=== PATIENT | male | born 1935 | race Caucasian/White ===

== ENCOUNTER 2017-01-11 19:17 | Emergency (ER) | payer MEDICARE, OTHER ==
--- NOTE | 2017-01-11 20:02 | EDM.PDOC ---
ED HISTORY OF PRESENT ILLNESS - General Chief Complaint: Chest Pain Stated Complaint: [facility] Time Seen by Provider: 01/11/17 19:43 Source of Information: Reports: Patient, RN notes reviewed History Limitations: Reports: No limitations - History of Present Illness INITIAL COMMENTS - FREE TEXT/NARRATIVE: The patient states that he was watching TV around 17:30 to 18:00, when he developed sudden onset severe diaphoresis and chest pain felt across the middle of his chest. It was sharp in character. It was a pain, not a discomfort. It did not radiate. He found no modifiers. He had some nausea, but only a slight dyspnea, and no sense of impending doom. A neighbor of his, a nurse, came over and gave the patient 2 baby aspirin, after which the pain gradually nearly resolved. At this time, the patient reports only minimal pain. No prior similar symptoms. - Related Data Allergies/ADRs: Allergies Allergy/AdvReac Type Severity Reaction Status Date / Time No Known Allergies Allergy Verified 01/11/17 19:21 Home Meds: Home Meds Levothyroxine 25 mcg PO ACBREAKFAST 01/11/17 [History] Past Medical History HEENT History: Reports: Other (see below) Other HEENT History: wear glasses Endocrine/Metabolic History: Reports: Hypothyroidism Social & Family History - Tobacco Use Smoking Status *Q: Former Smoker Tobacco Use Within Last Twelve Months: No Years of Tobacco use: 20 Packs/Tins Daily: 1 Used Tobacco, but Quit: Yes Month Tobacco Last Used: 1976 Second Hand Smoke Exposure: No - Caffeine Use Caffeine Use: Reports: None - Alcohol Use Alcohol Use History: Yes Alcohol Use Frequency: Socially - Recreational Drug Use Recreational Drug Use: No - Living Situation & Occupation Living situation: Reports: , alone Occupation: retired ED ROS GENERAL - Review of Systems Review Of Systems: See Below Constitutional: Reports: no symptoms HEENT: Reports: No symptoms Respiratory: Reports: No Symptoms Cardiovascular: Reports: No symptoms Endocrine: Reports: no symptoms GI/Abdominal: Reports: No symptoms : Reports: no symptoms Musculoskeletal: Reports: no symptoms Skin: Reports: no symptoms Neurological: Reports: No Symptoms Psychiatric: Reports: No symptoms Hematologic/Lymphatic: Reports: no symptoms Immunologic: Reports: no symptoms ED EXAM, GENERAL - Physical Exam Exam: See Below Exam Limited By: No limitations General Appearance: alert, WD/WN, no apparent distress Eye Exam: bilateral eye: EOMI, normal inspection Ears: normal external exam, hearing grossly normal Ear Exam: bilateral ear: auricle normal Nose: normal inspection, no blood Throat/Mouth: Normal inspection, Normal lips, Normal voice, No airway compromise Head: atraumatic, normocephalic Neck: normal inspection, full range of motion Respiratory/Chest: no respiratory distress, lungs clear, normal breath sounds, no accessory muscle use, chest non-tender Cardiovascular: normal peripheral pulses, regular rate, rhythm, no edema, no gallop, no JVD, no murmur, no rub Peripheral Pulses: 4+: radial (L), radial (R) GI/Abdominal: normal bowel sounds, soft, non tender, no organomegaly, no distention, no abnormal bruit, no mass Back Exam: normal inspection, full range of motion, NT Extremities: normal inspection, normal range of motion, non-tender, normal capillary refill, no pedal edema Neurological: alert, oriented, normal cognition, no motor/sensory deficits Psychiatric: normal affect Skin Exam: Warm, Dry, Intact, Normal color, No rash Lymphatic: no adenopathy EKG INTERPRETATION EKG Date: 01/11/17 Time: 19:18 Rhythm: NSR Rate (beats/min): 60 [place]: normal P-wave: present QRS: normal ST-T: normal QT: normal Comparison: NA - no prior EKG Course - Vital Signs Last Recorded V/S: Last Vital Signs Temp 36.6 C 01/11/17 19:18 Pulse 50 L 01/11/17 22:39 Resp 16 01/11/17 22:39 BP 97/55 L 01/11/17 22:39 Pulse Ox 98 01/11/17 22:39 - Orders/Labs/Meds Labs: Laboratory Tests 01/11/17 01/11/17 01/11/17 Range/Units 19:36 19:36 19:36 WBC 8.71 (4.23-9.07) K/mm3 RBC 4.55 L (4.63-6.08) M/mm3 Hgb 13.5 L (13.7-17.5) gm/L Hct 41.8 (40.1-51.0) % MCV 91.9 (79.0-92.2) fl MCH 29.7 (25.7-32.2) pg MCHC 32.3 (32.2-35.5) g/dl RDW Std Deviation 47.3 H (35.1-43.9) fL Plt Count 193 (163-337) K/mm3 MPV 11.0 (9.4-12.3) fl Neutrophils % (Manual) 81 H (40-60) % Band Neutrophils % 0 (0-10) % Lymphocytes % (Manual) 16 L (20-40) % Atypical Lymphs % 0 % Monocytes % (Manual) 2 (2-10) % Eosinophils % (Manual) 0 L (0.8-7.0) % Basophils % (Manual) 1 (0.2-1.2) Platelet Estimate Adequate Hypochromasia Few Anisocytosis 1+ slight Macrocytosis 1+ slight Ovalocytes 1+ slight RBC Morph Comment Not Reportable PT (8.0-13.0) SECONDS INR APTT (22-36) SECONDS D-Dimer, Quantitative 0.55 (0.19-0.59) mg/L Sodium 140 (136-145) mEq/L Potassium 4.4 (3.5-5.1) mEq/L Chloride 105 (98-107) mEq/L Carbon Dioxide 29 (21-32) mEq/L Anion Gap 10.4 (5-15) BUN 12 (7-18) mg/dL Creatinine 1.1 (0.7-1.3) mg/dL Est Cr Clr Drug Dosing 55.30 mL/min Estimated GFR (MDRD) > 60 (>60) mL/min BUN/Creatinine Ratio 10.9 L (14-18) Glucose 124 H (83-115) mg/dL Calcium 8.9 (8.5-10.1) mg/dL Total Bilirubin 0.8 (0.2-1.0) mg/dL AST 26 (15-37) U/L ALT 26 (16-63) U/L Alkaline Phosphatase 57 (46-116) U/L Troponin I 0.289 H* (0.00-0.056) ng/mL B-Natriuretic Peptide (0-100) pg/mL Total Protein 6.5 (6.4-8.2) g/dl Albumin 3.4 (3.4-5.0) g/dl Globulin 3.1 gm/dL Albumin/Globulin Ratio 1.1 (1-2) 01/11/17 01/11/17 Range/Units 19:36 19:36 WBC (4.23-9.07) K/mm3 RBC (4.63-6.08) M/mm3 Hgb (13.7-17.5) gm/L Hct (40.1-51.0) % MCV (79.0-92.2) fl MCH (25.7-32.2) pg MCHC (32.2-35.5) g/dl RDW Std Deviation (35.1-43.9) fL Plt Count (163-337) K/mm3 MPV (9.4-12.3) fl Neutrophils % (Manual) (40-60) % Band Neutrophils % (0-10) % Lymphocytes % (Manual) (20-40) % Atypical Lymphs % % Monocytes % (Manual) (2-10) % Eosinophils % (Manual) (0.8-7.0) % Basophils % (Manual) (0.2-1.2) Platelet Estimate Hypochromasia Anisocytosis Macrocytosis Ovalocytes RBC Morph Comment PT 10.5 (8.0-13.0) SECONDS INR 0.97 APTT 24 (22-36) SECONDS D-Dimer, Quantitative (0.19-0.59) mg/L Sodium (136-145) mEq/L Potassium (3.5-5.1) mEq/L Chloride (98-107) mEq/L Carbon Dioxide (21-32) mEq/L Anion Gap (5-15) BUN (7-18) mg/dL Creatinine (0.7-1.3) mg/dL Est Cr Clr Drug Dosing mL/min Estimated GFR (MDRD) (>60) mL/min BUN/Creatinine Ratio (14-18) Glucose (83-115) mg/dL Calcium (8.5-10.1) mg/dL Total Bilirubin (0.2-1.0) mg/dL AST (15-37) U/L ALT (16-63) U/L Alkaline Phosphatase (46-116) U/L Troponin I (0.00-0.056) ng/mL B-Natriuretic Peptide 41 (0-100) pg/mL Total Protein (6.4-8.2) g/dl Albumin (3.4-5.0) g/dl Globulin gm/dL Albumin/Globulin Ratio (1-2) Meds: Medications Discontinued Medications Generic Name Dose Route Start Last Admin Trade Name Eveline PRN Reason Stop Dose Admin Aspirin 162 mg 01/11/17 21:07 01/11/17 21:16 Aspirin PO 01/11/17 21:08 162 mg ONETIME ONE Administration Heparin Sodium (Porcine) 5,000 units 01/11/17 21:08 01/11/17 21:18 Heparin Sodium IVPUSH 01/11/17 21:09 5,000 units ONETIME ONE Administration Heparin Sodium/Dextrose 25,000 units in 500 mls @ 23.133 mls/hr 01/11/17 21: 15 01/11/17 21:22 Heparin 25,000 Units In D5w 500 Ml IV 23.133 mls/hr TITRATE NIKI Administration Protocol 15 UNITS/KG/HR Metoprolol Tartrate 5 mg 01/11/17 21:07 01/11/17 22:37 Lopressor IVPUSH 01/11/17 21:08 Not Given ONETIME STA Simvastatin 80 mg 01/11/17 21:37 01/11/17 22:33 Zocor PO 01/11/17 21:38 80 mg ONETIME STA Administration - Radiology Interpretation Free Text/Narrative:: Portable chest radiograph appears to be grossly normal. Cardiac silhouette is within normal limits. No pulmonary vascular congestion. No pleural effusions. No focal infiltrate. No pneumothorax. Atherosclerosis of the aortic arch noted. Formal read per the Radiologist pending. - Re-Assessments/Exams Free Text/Narrative Re-Assessment/Exam: 01/11/17 21:10 The patient's troponin returned elevated at 0.289. I will treat as a non-STEMI , with additional aspirin, Lopressor, and heparin. The patient will need to be transferred to [place]. 01/11/17 21:20 The patient's BP is 101/60, with a heart rate of 50, therefore we cannot give Lopressor. 01/11/17 21:[address] Hill, Im[facility] Specialist at [facility], at 21:30. He agrees to the patient being transferred to the hospitalist service, and he will take the patient to the [facility] in the morning. Case then discussed with Dr. Suarez, Hospitalist at [facility], at 21 :36. He requests that we give the patient Lipitor 80 mg (we do not have Lipitor at this facility - I will order simvastatin 80 mg). He accepts the patient for direct admission. Departure - Departure Time of Disposition: 21:42 Disposition: DC/Tfer to Acute Hospital 02 Reason for Transfer *Q: Primary PCI Indicated Condition: fair Clinical Impression: Non-STEMI (non-ST elevated myocardial infarction) Referrals: Marty Lawson MD [Primary Care Provider] -
[2017-01-11] MEDS ORDERED: Aspirin 81 MG Tab.Chew PO ONE (21:07)
[2017-01-11] MEDS ORDERED: Heparin Sodium 5,000 Units/ML Vial IVPUSH ONE (21:08)
[2017-01-11] MEDS: Metoprolol Tartrate 5 MG/5 ML SDV IVPUSH STA ×2 (21:14→22:37)
[2017-01-11] MEDS ORDERED: Heparin Sodium/D5W 25,000 UNITS/500 ML BAG IV SCH (21:15)
[2017-01-11] MEDS ORDERED: Simvastatin 40 MG Tab PO STA (21:37)
[2017-01-11 22:40] VITALS: BP 97/55
--- NOTE | 2017-01-12 10:31 | CR ---
Chest: Portable view of the chest was obtained. Comparison: No previous study. Heart size and mediastinum are within normal limits for portable technique. Lungs are clear. Bony structures are grossly intact. Impression: 1. Nothing acute is identified on portable chest x-ray. Diagnostic code #1
== END 2017-01-11 22:45 ==
LOC: JD.ED 19:17 → EDBD 19:17 → MERGE 19:17 → JD.ED 22:45
DX: I21.4 Non-ST elevation (NSTEMI) myocardial infarction (principal); E03.9 Hypothyroidism, unspecified; Z87.891 Personal history of nicotine dependence
CPT/HCPCS: 36415; 71010; 80053; 83880; 84484; 85025; 85379; 85610; 85730; 93005; 96365; 96376; 99285; A9270; J1644; J3490

== ENCOUNTER 2019-02-08 07:33 | Emergency (ER) | payer MEDICARE, OTHER ==
[2019-02-08 07:46] VITALS: BP 153/97
--- NOTE | 2019-02-08 08:14 | EDM.PDOC ---
ED HPI GENERAL MEDICAL PROBLEM - General Chief Complaint: Chest Pain Stated Complaint: [facility] Time Seen by Provider: 02/08/19 07:43 Source of Information: Reports: Patient, Old Records (ED 01/11/2017), RN Notes Reviewed History Limitations: Reports: No Limitations - History of Present Illness INITIAL COMMENTS - FREE TEXT/NARRATIVE: The patient states that he was woken up around 02:30 to 03:00 this morning with retrosternal chest pain that he describes as a "harsh" discomfort. The sensation did not radiate, and he does not recall any modifiers. He had no associated symptoms, such as dyspnea, nausea, diaphoresis, or sense of impending doom. He took one tablet of his own SL NTG, but no other medicines. He states that his symptoms resolved after he was given 2 mg of morphine, 3 sublingual nitroglycerin, 4 baby aspirin, and 1 mg of Ativan per EMS. Here in the ED, the patient states that he is completely symptom-free. The patient states that his symptoms were similar, although not as severe, as when he suffered a non-STEMI "a year ago". Medical records indicate that the patient was seen in this ED on 01/11/2017 with retrosternal chest discomfort. His ECG did not show ischemic changes, however, his troponin returned elevated at 0.289. The patient was subsequently transferred to [place], where he received a single coronary stent to his circumflex on 01/12/2017. The patient states that he has not undergone a cardiac stress test since receiving the stent. The patient's PCP is Dr. Lawson. His Air Support Operations Operator is Dr. Ta Perez. Treatments [employer]WORK: Reports: Aspirin, IV/IO, Nitroglycerin, Other Medication(s) Chest Pain Score (Numeric/FACES): 2 - Related Data Allergies Allergy/AdvReac Type Severity Reaction Status Date / Time No Known Allergies Allergy Verified 02/08/19 07:45 Home Meds: Home Meds Aspirin 81 mg PO DAILY 02/08/19 [History] Carvedilol 3.125 mg PO BID 02/08/19 [History] Levothyroxine [Synthroid] 100 mcg PO ACBREAKFAST 02/08/19 [History] Lisinopril 2.5 mg PO DAILY 02/08/19 [History] Rosuvastatin [Crestor] 10 mg PO DAILY 02/08/19 [History] Ticagrelor [Brilinta] 90 mg PO Q12H #60 tablet 02/08/19 [Rx] Past Medical History HEENT History: Reports: Other (See Below) Other HEENT History: wears glasses Cardiovascular History: Reports: CAD, High Cholesterol, Hypertension, [place] (non- STEMI 01/11/2017) Endocrine/Metabolic History: Reports: Hypothyroidism - Past Surgical History Cardiovascular Surgical History: Reports: Coronary Artery Stent (to circumflex, 01/12/2017), Other (See Below) (Coronary angiogram 01/12/2017, finding 100% lesion to circumflex (stented) and a 40% LAD lesion) Social & Family History - Tobacco Use Smoking Status *Q: Former Smoker Years of Tobacco use: 20 Packs/Tins Daily: 1 Month/Year Tobacco Last Used: Quit 1976 - Caffeine Use Caffeine Use: Reports: None - Alcohol Use Alcohol Use History: Yes Alcohol Use Frequency: Socially - Recreational Drug Use Recreational Drug Use: No - Living Situation & Occupation Living situation: Reports: Alone, Occupation: Retired ED ROS GENERAL - Review of Systems Review Of Systems: ROS reveals no pertinent complaints other than HPI. ED EXAM, GENERAL - Physical Exam Exam: See Below Exam Limited By: No Limitations General Appearance: Alert, WD/WN, No Apparent Distress Eye Exam: Bilateral Eye: EOMI, Normal Inspection Ears: Normal External Exam, Hearing Grossly Normal Nose: Normal Inspection Throat/Mouth: Normal Inspection, Normal Lips, Normal Voice, No Airway Compromise Head: Atraumatic, Normocephalic Neck: Normal Inspection, Full Range of Motion Respiratory/Chest: No Respiratory Distress, Lungs Clear, Normal Breath Sounds, No Accessory Muscle Use, Chest Non-Tender (including to the sternum) Cardiovascular: Normal Peripheral Pulses, Regular Rate, Rhythm, No Gallop, No JVD, No Murmur, No Rub Peripheral Pulses: 4+: Radial (L), Radial (R) GI/Abdominal: Normal Bowel Sounds, Soft, Non-Tender, No Organomegaly, No Distention, No Abnormal Bruit, No Mass (Male) Exam: Deferred Rectal (Males) Exam: Deferred Back Exam: Normal Inspection, Full Range of Motion, NT Extremities: Normal Inspection, Normal Range of Motion, No Pedal Edema, Normal Capillary Refill Neurological: Alert, Oriented, Normal Cognition, No Motor/Sensory Deficits Psychiatric: Normal Affect Skin Exam: Warm, Dry, Intact, Normal Color, No Rash EKG INTERPRETATION EKG Date: 02/08/19 Time: 07:38 Rhythm: NSR Rate (Beats/Min): 71 [place]: LAD-Left [place] Deviation P-Wave: Present QRS: Normal (Early transition) ST-T: Normal QT: Normal Comparison: No Change (01/11/2017) Course - Vital Signs Last Recorded V/S: Last Vital Signs Temp 36.3 C 02/08/19 07:42 Pulse 71 02/08/19 07:42 Resp 16 02/08/19 07:42 BP 153/97 H 02/08/19 07:42 Pulse Ox 97 02/08/19 07:42 - Orders/Labs/Meds Labs: Laboratory Tests 02/08/19 02/08/19 Range/Units 08:00 08:00 WBC 5.49 (4.23-9.07) K/mm3 RBC 4.86 (4.63-6.08) M/mm3 Hgb 14.0 (13.7-17.5) gm/L Hct 43.8 (40.1-51.0) % MCV 90.1 (79.0-92.2) fl MCH 28.8 (25.7-32.2) pg MCHC 32.0 L (32.2-35.5) g/dl RDW Std Deviation 46.6 H (35.1-43.9) fL Plt Count 165 (163-337) K/mm3 MPV 11.2 (9.4-12.3) fl Neutrophils % (Manual) 56 (40-60) % Band Neutrophils % 0 (0-10) % Lymphocytes % (Manual) 27 (20-40) % Atypical Lymphs % 0 % Monocytes % (Manual) 15 H (2-10) % Eosinophils % (Manual) 2 (0.8-7.0) % Basophils % (Manual) 0 L (0.2-1.2) Platelet Estimate Adequate Anisocytosis 1+ slight RBC Morph Comment Abnormal Sodium 136 (136-145) mEq/L Potassium 3.9 (3.5-5.1) mEq/L Chloride 104 (98-107) mEq/L Carbon Dioxide 26 (21-32) mEq/L Anion Gap 9.9 (5-15) BUN 11 (7-18) mg/dL Creatinine 1.0 (0.7-1.3) mg/dL Est Cr Clr Drug Dosing 58.81 mL/min Estimated GFR (MDRD) > 60 (>60) mL/min BUN/Creatinine Ratio 11.0 L (14-18) Glucose 101 (83-115) mg/dL Calcium 9.0 (8.5-10.1) mg/dL Total Bilirubin 1.6 H (0.2-1.0) mg/dL AST 25 (15-37) U/L ALT 26 (16-63) U/L Alkaline Phosphatase 59 (46-116) U/L Troponin I < 0.017 (0.00-0.056) ng/mL Total Protein 6.8 (6.4-8.2) g/dl Albumin 3.3 L (3.4-5.0) g/dl Globulin 3.5 gm/dL Albumin/Globulin Ratio 0.9 L (1-2) - Re-Assessments/Exams Free Text/Narrative Re-Assessment/Exam: 02/08/19 08:46 2-view chest radiograph appears to be grossly normal. The cardiac silhouette is within normal limits. No pulmonary vascular congestion. No pleural effusions. No focal infiltrate. No pneumothorax. Formal read per the Radiologist pending. 02/08/19 09:36 The patient's workup, including a troponin drawn 5 to 5.5 hours after the onset of his symptoms, is entirely unremarkable. The patient's presentation is consistent with an anginal event, but not an acute OH. Case discussed with the patient's Air Support Operations Operator, Dr. Perez, at 09:30. He recommended that the patient remain, if not already, on aspirin 81 mg Qd, Brilinta 90 mg BID, Lipitor 40 mg Qd, Coreg 3.125 mg BID, lisinopril 2.5 mg Qd, and SL NTG prn. He asked that I call the [facility] to arrange for a cardiac stress test for the patient for tomorrow morning, then have the patient follow-up with him tomorrow afternoon. I contacted the [facility], however, they require an order from Dr. Perez himself. They will contact Dr. Perez to get the order. 02/08/19 09:44 The above plan was discussed with the patient. He is not certain which medicines he is on, therefore we will check with his pharmacy. He is agreeable with the plan for the stress test tomorrow morning, then following up with Dr. Perez tomorrow afternoon. 02/08/19 10:43 The patient's medical list, faxed over from his pharmacy, confirms that he is on aspirin, Coreg, and lisinopril. His Lipitor appears to have been switched to rosuvastatin (Crestor). His medication list does not include sublingual nitroglycerin, however, the patient told me that he has some at home, indeed, that he took one tablet this morning. His medication list does not include Brilinta, therefore I will e-prescribe it for him. Departure - Departure Time of Disposition: 09:45 Disposition: Home, Self-Care 01 Condition: Fair Clinical Impression: Angina at rest Prescriptions: Ticagrelor [Brilinta] 90 mg PO Q12H #60 tablet Instructions: Angina Pectoris, [id number] Referrals: Marty Lawson MD [Primary Care Provider] - Ta Perez MD [Ordering Only Provider] - Forms: ED Department Discharge Additional Instructions: You were seen in the emergency room after being awoken with central chest discomfort this morning. Your symptoms entirely resolved after your given morphine, nitroglycerin, aspirin, and Ativan per the paramedics. Workup in the ER included blood work, a chest x-ray, and an ECG. Your entire workup was unremarkable. You have not suffered another heart attack , however, based on your history, physical examination, and ER test, the cause of your chest pain is almost certainly due to your heart, a condition called angina. Your case was discussed with your Air Support Operations Operator, Dr. Perez. He recommended that you remain on all of your currently prescribed medicines. He wants you to undergo a cardiac stress test tomorrow morning, then follow-up with him tomorrow afternoon. You will be contacted by the stress test site, in [place], and given instructions. We recommend that you contact the office of Dr. Perez to confirm that you have an appointment to see him tomorrow afternoon. Dr. Perez wants you to be on the blood-thinner Brilinta. A prescription for Brilinta has been sent to the [facility], located just south and across the [address] from [facility]. Take one tablet every 12 hours, as prescribed. If any other problems, please do not hesitate to return to the ER.
--- NOTE | 2019-02-08 08:51 | CR ---
Chest: Two views of the chest are obtained. Comparison: No prior chest x-ray. Slight parenchymal density is seen within the left lung base. Lungs otherwise are clear. Heart size is within normal limits. Slight tortuosity of the thoracic aorta is seen. Mild scattered degenerative change is seen within the spine. Impression: 1. Slight parenchymal density within the left base. This most likely represents atelectasis unless patient has infectious symptoms to indicate an early pneumonia. 2. Other incidental findings. Diagnostic code #3
== END 2019-02-08 11:10 | disposition home or self-care (01) ==
LOC: JD.ED 07:33
DX: I20.8 Other forms of angina pectoris (principal); E78.00 Pure hypercholesterolemia, unspecified; I25.2 Old myocardial infarction; Z87.891 Personal history of nicotine dependence; Z79.82 Long term (current) use of aspirin; Z79.899 Other long term (current) drug therapy
CPT/HCPCS: 36415; 71046; 71046-26; 80053; 84484; 85007; 85027; 93005; 93010; 99285; 99285-25

== ENCOUNTER 2020-03-26 06:52 | Emergency (ER) | payer MEDICARE, OTHER ==
[2020-03-26 07:01] VITALS: BP 182/79; PULSE 68
--- NOTE | 2020-03-26 07:32 | EDM.PDOC ---
ED HPI GENERAL MEDICAL PROBLEM - General Chief Complaint: Chest Pain Stated Complaint: CHEST PAIN Time Seen by Provider: 03/26/20 07:10 Source of Information: Reports: Patient, Family (Nephew) History Limitations: Reports: No Limitations - History of Present Illness INITIAL COMMENTS - FREE TEXT/NARRATIVE: Mr. Stahl is a very pleasant 84-year-old gentleman with a past medical history significant for coronary artery disease, status post non-STEMI on 01/11/2017, status post a single coronary stent to his left circumflex coronary artery, who now presents to the ED stating that he was woken with sudden onset left-sided chest pain (not a discomfort) around 3:00 this morning. The patient points with one finger to his mid left pectoralis muscle, and he states that the pain does not radiate. He describes the character as sharp. It has been constant, however, it has continually diminished since onset, such that it is not very bothersome at this time, although it is still present. He has not identified any modifiers. He states that when he woke up he had associated nausea, dyspnea , dizziness, and he states that he "felt like crap". His associated symptoms have likewise since improved. No prior similar symptoms; he states that his current presentation is different than when he had his UT. The patient states that he underwent a cardiac stress test about a month ago. Here in the ED, the patient's initial BP is found to be elevated at 182/79, otherwise, he is hemodynamically stable, afebrile, saturating 100% on room air. Without treatment, his BP has since decreased to 152/72. The patient denies recent fever, chills, sore throat, ear pain, nasal or sinus congestion, cough, palpitations, vomiting, constipation, diarrhea, abdominal pain, urinary symptoms, recent weight gain or weight loss, recent bloody bowel movements or black bowel movements, recent joint aches, headaches, or rashes. The patient's PCP is Dr. Marty Lawson. His Phlebotomist Medical Lab Assistant is Dr. Ta Perez. Left Chest Pain Score (Numeric/FACES): 5 - Related Data Allergies Allergy/AdvReac Type Severity Reaction Status Date / Time No Known Allergies Allergy Verified 03/26/20 06:58 Home Meds: Home Meds Aspirin 81 mg PO DAILY 02/08/19 [History] Levothyroxine [Synthroid] 100 mcg PO ACBREAKFAST 02/08/19 [History] Lisinopril 2.5 mg PO DAILY 02/08/19 [History] Rosuvastatin [Crestor] 20 mg PO BEDTIME 02/08/19 [History] carvediloL [Carvedilol] 3.125 mg PO BID 02/08/19 [History] Mupirocin Oint [Bactroban Oint] 1 gm TP DAILY PRN 03/26/20 [History] Nitroglycerin 0.4 mg SL ASDIRECTED PRN 03/26/20 [History] Ticagrelor [Brilinta] 90 mg PO BID 03/26/20 [History] Past Medical History HEENT History: Reports: Impaired Vision (wears glasses) Cardiovascular History: Reports: CAD, High Cholesterol, Hypertension, UT (non- STEMI 01/11/2017) Endocrine/Metabolic History: Reports: Hypothyroidism - Past Surgical History Cardiovascular Surgical History: Reports: Coronary Artery Stent (x 1, to circumflex, 01/12/2017), Other (See Below) (Coronary angiogram 01/12/2017, finding 100% lesion to circumflex (stented) and a 40% LAD lesion) Social & Family History - Tobacco Use Smoking Status *Q: Former Smoker Years of Tobacco use: 20 Packs/Tins Daily: 1 Month/Year Tobacco Last Used: Quit 1976 - Caffeine Use Caffeine Use: Reports: None - Alcohol Use Alcohol Use History: Yes Alcohol Use Frequency: Socially - Recreational Drug Use Recreational Drug Use: No - Living Situation & Occupation Living situation: Reports: Alone, Occupation: Retired ED ROS GENERAL - Review of Systems Review Of Systems: Comprehensive ROS is negative, except as noted in HPI. ED EXAM, GENERAL - Physical Exam Exam: See Below Exam Limited By: No Limitations General Appearance: Alert, WD/WN, No Apparent Distress Eye Exam: Bilateral Eye: EOMI, Normal Inspection Ears: Normal External Exam, Hearing Grossly Normal Nose: Normal Inspection Throat/Mouth: Normal Inspection, Normal Lips, Normal Voice, No Airway Compromise Head: Atraumatic, Normocephalic Neck: Normal Inspection, Full Range of Motion Respiratory/Chest: No Respiratory Distress, Lungs Clear, Normal Breath Sounds, No Accessory Muscle Use, Other (Reproducible tenderness to palpation of the left mid pectoralis muscle. Nontender elsewhere.) Cardiovascular: Normal Peripheral Pulses, Regular Rate, Rhythm, No Edema, No Gallop, No JVD, No Murmur, No Rub Peripheral Pulses: 3+: Radial (L), Radial (R) GI/Abdominal: Normal Bowel Sounds, Soft, Non-Tender, No Organomegaly, No Distention, No Abnormal Bruit, No Mass (Male) Exam: Deferred Rectal (Males) Exam: Deferred Back Exam: Normal Inspection, Full Range of Motion, NT Extremities: Normal Inspection, Normal Range of Motion, No Pedal Edema, Normal Capillary Refill Neurological: Alert, Oriented, Normal Cognition, No Motor/Sensory Deficits Psychiatric: Normal Affect Skin Exam: Warm, Dry, Intact, Normal Color, No Rash EKG INTERPRETATION EKG Date: 03/26/20 Time: 06:57 Rhythm: NSR Rate (Beats/Min): 64 [place]: Normal P-Wave: Present QRS: Other (Early transition) ST-T: Normal QT: Normal Comparison: No Change (02/08/2019) Course - Vital Signs Last Recorded V/S: Last Vital Signs Temp 36.2 C 03/26/20 06:59 Pulse 68 03/26/20 06:59 Resp 15 03/26/20 06:59 BP 182/79 H 03/26/20 06:59 Pulse Ox 100 03/26/20 06:59 - Orders/Labs/Meds Orders: Active Orders 24 hr Category Date Time Status EKG Documentation Completion [RC] STAT Care 03/26/20 07:25 Active Labs: Laboratory Tests 03/26/20 03/26/20 03/26/20 Range/Units 07:35 07:35 07:35 WBC 6.23 (4.23-9.07) K/mm3 RBC 4.62 L (4.63-6.08) M/mm3 Hgb 13.7 (13.7-17.5) gm/dl Hct 42.3 (40.1-51.0) % MCV 91.6 (79.0-92.2) fl MCH 29.7 (25.7-32.2) pg MCHC 32.4 (32.2-35.5) g/dl RDW Std Deviation 49.0 H (35.1-43.9) fL Plt Count 176 (163-337) K/mm3 MPV 11.3 (9.4-12.3) fl Neutrophils % (Manual) 70 H (40-60) % Band Neutrophils % 0 (0-10) % Lymphocytes % (Manual) 23 (20-40) % Atypical Lymphs % 0 % Monocytes % (Manual) 3 (2-10) % Eosinophils % (Manual) 3 (0.8-7.0) % Basophils % (Manual) 1 (0.2-1.2) Platelet Estimate Adequate Plt Morphology Comment Normal Anisocytosis 1+ sligh RBC Morph Comment Not Reportable PT 11.1 (9.7-12.0) SECONDS INR 1.02 APTT 26 (22-31) SECONDS D-Dimer, Quantitative 0.68 H (0.19-0.50) mg/L Sodium 140 (136-145) mEq/L Potassium 3.8 (3.5-5.1) mEq/L Chloride 107 (98-107) mEq/L Carbon Dioxide 24 (21-32) mEq/L Anion Gap 12.8 (5-15) BUN 12 (7-18) mg/dL Creatinine 1.0 (0.7-1.3) mg/dL Est Cr Clr Drug Dosing 55.97 mL/min Estimated GFR (MDRD) > 60 (>60) mL/min BUN/Creatinine Ratio 12.0 L (14-18) Glucose 94 (83-115) mg/dL Calcium 9.1 (8.5-10.1) mg/dL Total Bilirubin 2.0 H (0.2-1.0) mg/dL AST 31 (15-37) U/L ALT 27 (16-63) U/L Alkaline Phosphatase 54 (46-116) U/L Troponin I < 0.017 (0.00-0.056) ng/mL NT-Pro-B Natriuret Pep (0-450) pg/mL Total Protein 6.9 (6.4-8.2) g/dl Albumin 3.5 (3.4-5.0) g/dl Globulin 3.4 gm/dL Albumin/Globulin Ratio 1.0 (1-2) 03/26/20 Range/Units 07:35 WBC (4.23-9.07) K/mm3 RBC (4.63-6.08) M/mm3 Hgb (13.7-17.5) gm/dl Hct (40.1-51.0) % MCV (79.0-92.2) fl MCH (25.7-32.2) pg MCHC (32.2-35.5) g/dl RDW Std Deviation (35.1-43.9) fL Plt Count (163-337) K/mm3 MPV (9.4-12.3) fl Neutrophils % (Manual) (40-60) % Band Neutrophils % (0-10) % Lymphocytes % (Manual) (20-40) % Atypical Lymphs % % Monocytes % (Manual) (2-10) % Eosinophils % (Manual) (0.8-7.0) % Basophils % (Manual) (0.2-1.2) Platelet Estimate Plt Morphology Comment Anisocytosis RBC Morph Comment PT (9.7-12.0) SECONDS INR APTT (22-31) SECONDS D-Dimer, Quantitative (0.19-0.50) mg/L Sodium (136-145) mEq/L Potassium (3.5-5.1) mEq/L Chloride (98-107) mEq/L Carbon Dioxide (21-32) mEq/L Anion Gap (5-15) BUN (7-18) mg/dL Creatinine (0.7-1.3) mg/dL Est Cr Clr Drug Dosing mL/min Estimated GFR (MDRD) (>60) mL/min BUN/Creatinine Ratio (14-18) Glucose (83-115) mg/dL Calcium (8.5-10.1) mg/dL Total Bilirubin (0.2-1.0) mg/dL AST (15-37) U/L ALT (16-63) U/L Alkaline Phosphatase (46-116) U/L Troponin I (0.00-0.056) ng/mL NT-Pro-B Natriuret Pep 543 H (0-450) pg/mL Total Protein (6.4-8.2) g/dl Albumin (3.4-5.0) g/dl Globulin gm/dL Albumin/Globulin Ratio (1-2) - Re-Assessments/Exams Free Text/Narrative Re-Assessment/Exam: 03/26/20 07:26 As above, the patient woke with sharp left-sided chest pain around 3:00 this morning. The pain has improved since its onset, but is still present, and is reproducible with palpation, strongly indicating a musculoskeletal etiology. His triage ECG is unremarkable. I have ordered a work-up that includes blood work and a chest x-ray. 03/26/20 08:00 Two-view chest radiograph appears to be grossly normal. The cardiac silhouette is within normal limits. No pulmonary vascular congestion. No pleural effusions. No focal infiltrate. No pneumothorax. There is hyperinflation and bilateral diaphragmatic flattening, consistent with COPD. Formal read per the Radiologist pending. 03/26/20 08:37 The patient's CBC is unremarkable. His CMP is remarkable for a TBil rated at 2.0, but is otherwise unremarkable. His troponin is undetectably low. His BNP is mildly elevated at 543. His D-dimer is mildly elevated at 0.68. His coags are unremarkable. 03/26/20 09:00 Test results discussed with the patient and his nephew. As above, today's work- up is grossly unremarkable. His mildly elevated D-dimer is not consistent with a pulmonary embolus, and I am therefore not recommending a CT angiogram of the chest. His chest pain appears to be musculoskeletal in etiology. I believe the patient can safely be discharged home. I suggested he try ibuprofen as needed for discomfort. I recommended that he contact the office of his PCP to notify them of his ED visit. Departure - Departure Time of Disposition: :01 Disposition: Home, Self-Care 01 Condition: Good Clinical Impression: Musculoskeletal chest pain Instructions: Chest Wall Pain, [id number] Referrals: Marty Lawson MD [Primary Care Provider] - Ta Perez MD [Ordering Only Provider] - Forms: ED Department Discharge Additional Instructions: You were seen in the emergency room after being woken up with left-sided chest pain nausea, shortness of breath, dizziness, and not feeling well around 3:00 this morning. Work-up in the ER included blood work, a chest x-ray, and an ECG. Your entire work-up was unremarkable. You have not suffered a heart attack. You do not have a blood clot in your lungs. You do not have pneumonia. You do not have a collapsed lung. The cause of your symptoms is not entirely clear, but is most likely musculoskeletal in etiology. Going forward, we recommend that you take [id number] ibuprofen as needed for discomfort. We recommend that you notify the office of your PCP, Dr. Marty Lawson, of your ER visit. If any other problems, please do not hesitate to return to the ER. Sepsis Event Note - Evaluation Sepsis Screening Result: No Definite Risk - Focused Exam Vital Signs: Vital Signs Temp Pulse Resp BP Pulse Ox 03/26/20 06:59 36.2 C 68 15 182/79 H 100 Date Exam was Performed: 03/26/20 Time Exam was Performed: 09:37 - My Orders Last 24 Hours: My Active Orders 03/26/20 07:25 EKG Documentation Completion [RC] STAT - Assessment/Plan Last 24 Hours: My Active Orders 03/26/20 07:25 EKG Documentation Completion [RC] STAT
--- NOTE | 2020-03-26 08:05 | CR ---
Chest: 2 views of the chest were obtained. Comparison: Prior chest x-ray of 02/08/19. Heart size and mediastinum are normal. Lungs are clear with no acute parenchymal change. Diaphragms are flattened on the lateral view which is compatible with emphysematous change. Scattered disc space narrowing is noted within the spine with mild endplate osteophytes. Impression: 1. Emphysematous change. 2. Nothing acute is otherwise seen on 2 view chest x-ray. Diagnostic code #2 This report was dictated in MDT
== END 2020-03-26 09:11 | disposition home or self-care (01) ==
LOC: JD.ED 06:52
DX: R07.89 Other chest pain (principal); I25.10 Atherosclerotic heart disease of native coronary artery without angina pectoris; I25.2 Old myocardial infarction; E78.00 Pure hypercholesterolemia, unspecified; I10 Essential (primary) hypertension; E03.9 Hypothyroidism, unspecified; Z79.82 Long term (current) use of aspirin; Z79.899 Other long term (current) drug therapy; Z95.5 Presence of coronary angioplasty implant and graft; Z87.891 Personal history of nicotine dependence
CPT/HCPCS: 36415; 71046; 71046-26; 80053; 83880; 84484; 85007; 85027; 85379; 85610; 85730; 93005; 93010; 99282; 99285-25

== ENCOUNTER 2021-11-06 11:14 | Emergency (ER) | payer MEDICARE, OTHER ==
[2021-11-06] MEDS ORDERED: Ondansetron 4 MG/2 ML SDV IVPUSH ONE ×2 (11:31→13:16)
[2021-11-06] MEDS ORDERED: Sodium Chloride 0.9% 1,000 ML IV SCH ×2 (11:45→17:30)
[2021-11-06] MEDS: Sodium Chloride 0.9% 10 ML Syringe FLUSH PRN ×2 (11:49→13:04)
[2021-11-06] MEDS ORDERED: Iopamidol 612 MG/ML 100 ML Bottle IVPUSH ONE (13:00)
[2021-11-06] MEDS ORDERED: Morphine 4 MG/ML Syringe IVPUSH ONE (13:16)
[2021-11-06] MEDS ORDERED: Piperacillin/Tazobactam 4.5 GM in Sodium Chloride 0.9% 100 ML IV ONE (13:35)
[2021-11-06] MEDS ORDERED: metroNIDAZOLE/Normal Saline 500 MG in Premix Bag 1 BAG IV ONE (13:35)
[2021-11-06] MEDS: Piperacillin/Tazobactam 3.375 GM in Sodium Chloride 0.9% 100 ML IV SCH (20:05)
[2021-11-06] MEDS: metroNIDAZOLE/Normal Saline 500 MG in Premix Bag 1 BAG IV SCH (21:55)
[2021-11-06] MEDS ORDERED: LORazepam 2 MG/ML SDV IVPUSH STA (23:44)
[2021-11-07] MEDS: Piperacillin/Tazobactam 3.375 GM in Sodium Chloride 0.9% 100 ML IV SCH ×2 (00:55→07:41)
[2021-11-07] MEDS: metroNIDAZOLE/Normal Saline 500 MG in Premix Bag 1 BAG IV SCH (06:00)
[2021-11-07] MEDS ORDERED: Sodium Chloride 0.9% 1,000 ML IV SCH (10:15)
[2021-11-07 14:59] VITALS: BP 157/91; PULSE 76
[2021-11-07] MEDS ORDERED: Piperacillin/Tazobactam 4.5 GM in Sodium Chloride 0.9% 100 ML IV SCH (15:30)
== END 2021-11-07 14:55 | disposition home or self-care (01) ==
LOC: JD.ED 11:14
DX: K56.609 Unspecified intestinal obstruction, unspecified as to partial versus complete obstruction (principal); K56.2 Volvulus; Z79.82 Long term (current) use of aspirin; Z79.899 Other long term (current) drug therapy; Z20.822 Contact with and (suspected) exposure to COVID-19
CPT/HCPCS: 36415; 74177; 80053; 81001; 82947; 83605; 83690; 83735; 85025; 86140; 87040; 96365; 96366; 96367; 96375; 99284; J2060; J2270; J2405; J2543; J3490; J7030; Q9967; U0002; 99285

== ENCOUNTER 2022-11-09 14:33 | Emergency (ER) | payer MEDICARE, OTHER ==
[2022-11-09 14:40] VITALS: PULSE 68
[2022-11-09] MEDS ORDERED: OLANZapine 5 MG Tab PO ONE (14:56)
[2022-11-09] MEDS ORDERED: LORazepam 1 MG Tab PO ONE (17:45)
[2022-11-09 18:09] VITALS: BP 150/79
== END 2022-11-09 18:12 | disposition home or self-care (01) ==
LOC: JD.ED 14:33
DX: F03.911 Unspecified dementia, unspecified severity, with agitation (principal); R44.3 Hallucinations, unspecified; I25.10 Atherosclerotic heart disease of native coronary artery without angina pectoris; E78.00 Pure hypercholesterolemia, unspecified; I10 Essential (primary) hypertension; I25.2 Old myocardial infarction; E03.9 Hypothyroidism, unspecified; Z79.82 Long term (current) use of aspirin; Z79.899 Other long term (current) drug therapy
CPT/HCPCS: 36415; 80053; 81001; 85025; 99285; A9270

== ENCOUNTER 2022-11-13 19:09 | Inpatient (IN) | payer MEDICARE, OTHER ==
[2022-11-13 20:44] LABS: ESTIMATED GFR 65 mL/min (>60)
[2022-11-14] MEDS ORDERED: OLANZapine 5 MG Tab PO ONE ×3 (00:23→18:19)
[2022-11-14] MEDS ORDERED: LORazepam 0.5 MG Tab PO ONE (17:29)
[2022-11-14] MEDS ORDERED: Haloperidol Lactate 5 MG/ML SDV IM ONE (21:00)
[2022-11-14] MEDS: OLANZapine 5 MG Tab PO SCH (21:03)
[2022-11-14] MEDS: ALPRAZolam 0.5 MG Tab PO PRN (21:03)
[2022-11-15] MEDS: ALPRAZolam 0.5 MG Tab PO PRN (02:07)
[2022-11-15] MEDS: Levothyroxine 25 MCG Tab PO SCH (06:14)
[2022-11-15] MEDS: Aspirin 81 MG Tab.Chew PO SCH (09:14)
[2022-11-15] MEDS: OLANZapine 5 MG Tab PO SCH ×2 (09:14→20:08)
[2022-11-15] MEDS: Lisinopril 2.5 MG Tab PO SCH (09:14)
[2022-11-15] MEDS: Sertraline 25 MG Tab PO SCH (09:14)
[2022-11-15] MEDS: Carvedilol 3.125 MG Tab PO SCH ×2 (09:14→20:09)
[2022-11-15] MEDS: Enoxaparin 40 MG/0.4 ML Syringe SUBCUT SCH (11:26)
[2022-11-15] MEDS: TICAGRELOR 60 MG PO SCH ×2 (11:26→20:09)
[2022-11-15] MEDS: Melatonin 3 MG Tab PO SCH (20:07)
[2022-11-15] MEDS: Rosuvastatin 10 MG Tab PO SCH (20:08)
[2022-11-15] MEDS ORDERED: Non-Formulary Medication 1 Each (Melatonin [Melatonin] 5 MG Tablet) PO SCH (21:00)
[2022-11-16] MEDS: OLANZapine 5 MG Tab PO SCH ×2 (08:36→20:10)
[2022-11-16] MEDS: Lisinopril 2.5 MG Tab PO SCH (08:36)
[2022-11-16] MEDS: Enoxaparin 40 MG/0.4 ML Syringe SUBCUT SCH (08:36)
[2022-11-16] MEDS: Aspirin 81 MG Tab.Chew PO SCH (08:36)
[2022-11-16] MEDS: Carvedilol 3.125 MG Tab PO SCH ×2 (08:40→20:10)
[2022-11-16] MEDS: Sertraline 25 MG Tab PO SCH (08:40)
[2022-11-16] MEDS: TICAGRELOR 60 MG PO SCH ×2 (08:41→20:12)
[2022-11-16] MEDS: Levothyroxine 25 MCG Tab PO SCH (08:47)
[2022-11-16] MEDS: Acetaminophen 325 MG Tab PO PRN ×2 (16:33→20:11)
[2022-11-16] MEDS: Melatonin 3 MG Tab PO SCH (20:11)
[2022-11-16] MEDS: Rosuvastatin 10 MG Tab PO SCH (20:12)
[2022-11-17] MEDS: Levothyroxine 25 MCG Tab PO SCH (05:40)
[2022-11-17 08:00] VITALS: BP 103/55; PULSE 58
[2022-11-17] MEDS: Sertraline 25 MG Tab PO SCH (09:08)
[2022-11-17] MEDS: Carvedilol 3.125 MG Tab PO SCH (09:08)
[2022-11-17] MEDS: OLANZapine 5 MG Tab PO SCH (09:09)
[2022-11-17] MEDS: Aspirin 81 MG Tab.Chew PO SCH (09:09)
[2022-11-17] MEDS: TICAGRELOR 60 MG PO SCH (09:10)
[2022-11-17] MEDS: Enoxaparin 40 MG/0.4 ML Syringe SUBCUT SCH (09:10)
== END 2022-11-17 14:01 | DRG 57 ==
LOC: JD.ED 19:09 → JD.MS 11-14 19:28 → EDBD 11-14 19:28
PROVIDERS: ADMIT Internal Medicine; ATTEND Internal Medicine
DX: G30.1 Alzheimer's disease with late onset (principal); F02.C11 Dementia in other diseases classified elsewhere, severe, with agitation; F03.918 Unspecified dementia, unspecified severity, with other behavioral disturbance; I10 Essential (primary) hypertension; E03.9 Hypothyroidism, unspecified; I25.10 Atherosclerotic heart disease of native coronary artery without angina pectoris; F41.9 Anxiety disorder, unspecified; F29 Unspecified psychosis not due to a substance or known physiological condition; E78.00 Pure hypercholesterolemia, unspecified; Z79.890 Hormone replacement therapy; Z79.82 Long term (current) use of aspirin; I25.2 Old myocardial infarction; Z79.899 Other long term (current) drug therapy; Z95.5 Presence of coronary angioplasty implant and graft
CPT/HCPCS: 36415; 70450; 70450-26; 80053; 80306; 80307; 81001; 82140; 84443; 84484; 85025; 87641; 93005; 93010; 99285; A9270-GY